=== PATIENT | female | born 1990 ===

== ENCOUNTER 2018-03-24 12:52 | Emergency (ER) | payer OTHER, SELFPAY ==
[2018-03-24] MEDS ORDERED: MORPHINE 4 MG/ML SYR ONE ×2 (14:21→16:29)
[2018-03-24] MEDS ORDERED: ONDANSETRON 4 MG/2 ML VIAL ONE ×2 (14:21→15:53)
[2018-03-24 14:39] LABS: Absolute Lymphocytes (CBC) 1.9 K/uL (0.7-4.9); Absolute Monocytes 0.8 K/uL (0.1-1.3); Absolute Neutrophil 14.8 K/uL (1.8-8.0); Basophils % 0.2 % (0-1.3); Eosinophils % 0.4 % (0-4.4); Hematocrit 40.2 % (36.0-45.0); Lymphocytes % 10.7 % (15.3-44.8); MCH 27.4 pg (27.0-35.0); MCV 84.2 fL (80-100); MPV 11.9 fL (7.6-11.3); Monocytes % 4.3 % (3.3-12.3); RBC Red Blood Cell Count 4.78 M/uL (3.86-4.86)
[2018-03-24 14:40] LABS: Urine Blood 2+ (NEG); Urine Glucose NEGATIVE (NEG); Urine Protein 1+ (NEG); Urine Specific Gravity 1.025 (1.005-1.030)
[2018-03-24 14:51] LABS: Urine Bacteria >50 /HPF (<20); Urine Culture Reflex Order NOT NEEDED; Urine Mucus HEAVY /HPF (NONE SEEN); Urine RBC >50 /HPF (NONE SEEN)
[2018-03-24 14:52] LABS: Bicarbonate 25 mEq/L (21-31); Glucose Level 102 mg/dL (65-120); Lipase 14 U/L (22-51); Potassium 3.4 mEq/L (3.6-5.0); Sodium Level 141 mEq/L (135-145)
--- NOTE | 2018-03-24 14:54 | RAD REPORT ---
EXAM DESCRIPTION: US - Abdomen Exam Limited - 03/24/2018 2:03 pm CLINICAL HISTORY: Right upper quadrant pain COMPARISON: None. FINDINGS: No gallstones, sludge or other abnormalities within the gallbladder lumen. There is no wal l thickening or pericholecystic fluid. No common duct stone or biliary tree dilatation identified. IMPRESSION: Normal gallbladder and biliary tree ultrasound.
[2018-03-24 14:58] LABS: ALT/SGPT 18 IU/L (10-60); AST/SGOT 26 IU/L (10-42); Albumin 4.4 g/dL (3.2-5.5); Alkaline Phosphatase 72 IU/L (42-121); BUN Blood Urea Nitrogen 5 mg/dL (6-20); Bilirubin Direct 0.1 mg/dL (0-0.2); Bilirubin Total 0.8 mg/dL (0.3-1.2); Protein, Total 7.6 g/dL (6.0-8.3)
--- NOTE | 2018-03-24 17:48 | RAD REPORT ---
EXAM DESCRIPTION: CT - Abdomen Pelvis W Contrast - 03/24/2018 5:36 pm CLINICAL HISTORY: Right upper quadrant pain, nausea and vomiting COMPARISON: None. TECHNIQUE: Biphasic, helical CT imaging of the abdomen and pelvis was performed following 100 ml non -ionic IV contrast. Oral contrast was given. All CT scans are performed using dose optimization technique as appropriate and may include automated exposure control or mA/KV adjustment according to patient size. FINDINGS: No suspicious findings in the lung bases. The liver, spleen, and pancreas show no suspicious findings. Gallbladder and biliary tree are also wi thout suspicious finding. Gallstones can be occult. No evidence for an active gallbladder process. Symmetric renal function is seen with no hydronephrosis or suspicious renal mass. No pyelonephritis o r acute renal parenchymal process. Urinary bladder is contracted limiting assessment. No bladder calc buck. Uterus and ovaries show no suspicious findings. No gastric dilatation or gastric wall thickening. Duodenum is unremarkable as well. There are no appe ndicitis findings. Large and small bowel without acute component. No free air or pneumatosis. Trace amount of free fluid in the cul-de-sac is well within physiologic limits. No hernia, mass or bulky l ymphadenopathy. No adrenal abnormality. No suspicious bony findings. IMPRESSION: Contrast enhanced CT abdomen and pelvis showing no significant or suspicious finding. Gallstones can be occult. No evidence for an active gallbladder or biliary tree process.
--- NOTE | 2018-03-24 17:58 | EDPHYS ---
Physician Documentation [facility] Name: Violeta Drake Age: 27 yrs Sex: Female : 1990 Arrival Date: 03/24/2018 Time: 12:55 Bed 13 Private MD: ED Physician Luis Angel Obrien HPI: 03/24 16:25 This 27 yrs old Unknown Female presents to ER via Ambulatory with complaints of rn Abdominal Pain, Vomiting. 16:25 The patient presents to the emergency department with nausea, vomiting, diarrhea, rn abdominal pain. 16:25 Onset: The symptoms/episode began/occurred today. Possible causes: unknown. The rn symptoms are aggravated by pressure, The symptoms are alleviated by nothing. Severity of symptoms: At their worst the symptoms were moderate in the emergency department the symptoms are unchanged. The patient has experienced similar episodes in the past. Reports has had several weeks/months of upper abd pain, assoc with nausea and diarrhea, worse after eating, got worse today, became constant. . 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 - Social history:: Smoking status: Patient/guardian denies using tobacco. - Family history:: not pertinent. - Hospitalizations: : No recent hospitalization is reported. ROS: 16:25 Constitutional: Negative for fever, chills, and weight loss, Eyes: Negative for injury, rn pain, redness, and discharge, Neck: Negative for injury, pain, and swelling, Cardiovascular: Negative for chest pain, palpitations, and edema, Respiratory: Negative for shortness of breath, cough, wheezing, and pleuritic chest pain, Abdomen/GI: + abd pain/vomiting MS/Extremity: Negative for injury and deformity, Skin: Negative for injury, rash, and discoloration, Neuro: Negative for headache, weakness, numbness, tingling, and seizure. Exam: 16:25 Constitutional: This is a well developed, well nourished patient who is awake, alert, rn and in no acute distress. Head/Face: Normocephalic, atraumatic. Eyes: Pupils equal round and reactive to light, extra-ocular motions intact. Lids and lashes normal. Conjunctiva and sclera are non-icteric and not injected. Cornea within normal limits. Periorbital areas with no swelling, redness, or edema. Cardiovascular: Regular rate and rhythm with a normal S1 and S2. No gallops, murmurs, or rubs. Normal PMI, no JVD. No pulse deficits. Respiratory: Lungs have equal breath sounds bilaterally, clear to auscultation and percussion. No rales, rhonchi or wheezes noted. No increased work of breathing, no retractions or nasal flaring. Abdomen/GI: soft, mild RUQ and periumbilical tenderness, no rebound Back: No spinal tenderness. No costovertebral tenderness. Full range of motion. MS/ Extremity: Pulses equal, no cyanosis. Neurovascular intact. Full, normal range of motion. Equal circumference. Neuro: Awake and alert, GCS 15, oriented to person, place, time, and situation. Cranial nerves II-XII grossly intact. Motor strength 5/5 in all extremities. Sensory grossly intact. Cerebellar exam normal. Normal gait. Vital Signs: 13:12 BP 124 / 79; Pulse 88; Resp 18; Temp 98.4(TE); Pulse Ox 100% on R/A; Weight 68.04 kg; hj Height 5 ft. 3 in. (160.02 cm); Pain 10/10; 14:00 BP 102 / 86; Pulse 74; Resp 18; Pulse Ox 99% on R/A; Pain 9/10; em 15:07 BP 115 / 90; Pulse 82; Resp 16; Pulse Ox 97% on R/A; Pain 3/10; em 16:15 BP 108 / 79; Pulse 71; Resp 18; Pulse Ox 99% on R/A; ae1 17:29 BP 106 / 76; Pulse 73; Resp 16; Pulse Ox 99% on R/A; em 18:13 BP 113 / 78; Pulse 69; Resp 16; Temp 98.3(O); Pulse Ox 100% on R/A; Pain 3/10; em 13:12 Body Mass Index 26.57 (68.04 kg, 160.02 cm) MDM: 13:39 Patient medically screened. rn 17:56 Differential diagnosis: Nonspecific abd pain, gastritis, cholecystitis, pancreatitis, rn appendicitis, diverticulitis, viral gastroenteritis, gastroenteritis. Data reviewed: vital signs, nurses notes, lab test result(s), radiologic studies, CT scan, ultrasound, and as a result, I will discharge patient. Counseling: I had a detailed discussion with the patient and/or guardian regarding: the historical points, exam findings, and any diagnostic results supporting the discharge/admit diagnosis, lab results, radiology results, the need for outpatient follow up, to return to the emergency department if symptoms worsen or persist or if there are any questions or concerns that arise at home. 17:56 Special discussion: Based on the patient's Hx, exam, and Dx evaluation, there is no rn indication for emergent surgery or inpatient Tx. It is understood by the patient/guardian that if the Sx's persist or worsen they need to return immediately for re-evaluation. I discussed with the patient/guardian in detail that at this point there is no indication for admission to the hospital. It is understood, however, that if the symptoms persist or worsen the patient needs to return immediately for re-evaluation. 03/24 13:45 Order name: Basic Metabolic Panel rn 03/24 13:45 Order name: CBC with Diff; Complete Time: 15:00 03/24 13:45 Order name: Creatinine for Radiology; Complete Time: 15:00 03/24 13:45 Order name: Hepatic Function rn 03/24 13:45 Order name: Lipase rn 03/24 13:45 Order name: Urine Microscopic Only; Complete Time: 15:00 03/24 13:45 Order name: US Abdomen Limited; Complete Time: 15:00 rn 03/24 13:46 Order name: Basic Metabolic Panel; Complete Time: 15:00 EDMD 03/24 13:46 Order name: Liver (Hepatic) Function; Complete Time: 15:00 EDMD 03/24 13:46 Order name: Lipase; Complete Time: 15:00 EDMD 03/24 14:38 Order name: Urine Dipstick--Ancillary (enter results); Complete Time: 15:00 bd 03/24 14:38 Order name: Urine --Ancillary (enter results); Complete Time: 15:00 bd 03/24 15:01 Order name: CT Abd/Pelvis - W/Contrast; Complete Time: 17:54 rn 03/24 13:45 Order name: Urine Test (obtain specimen); Complete Time: 14:35 rn 03/24 13:45 Order name: IV Saline Lock; Complete Time: 14:35 rn 03/24 13:45 Order name: Labs collected and sent; Complete Time: 14:35 rn 03/24 13:45 Order name: Urine Dipstick-Ancillary (obtain specimen); Complete Time: 14:35 rn Administered Medications: 14:30 Drug: morphine 4 mg Route: IVP; Site: right antecubital; iw 14:51 Follow up: Response: No adverse reaction em 14:30 Drug: Zofran 4 mg Route: IVP; Site: right antecubital; iw 14:51 Follow up: Response: No adverse reaction em 16:06 Drug: Zofran 4 mg Route: IVP; Site: right antecubital; em 16:50 Follow up: Response: No adverse reaction; Nausea is decreased em 16:40 Drug: morphine 4 mg Route: IVP; Site: right antecubital; em 18:12 Follow up: Response: No adverse reaction; Pain is decreased em 18:12 Drug: Cipro 500 mg Route: PO; em 18:13 Follow up: Response: Medication administered at discharge. em 18:12 Drug: Flagyl 500 mg Route: PO; em 18:13 Follow up: Response: Medication administered at discharge. em Disposition: 03/24/18 17:57 Discharged to Home. Impression: Enteritis, Vomiting, Diarrhea, unspecified. - Condition is Stable. - Discharge Instructions: Diarrhea, Nausea and Vomiting. - Prescriptions for Zofran ODT 4 mg Oral tablet,disintegrating - place 1 tablet by TRANSLINGUAL route every 8-10 hours As needed; 20 tablet. Cipro 500 mg Oral Tablet - take 1 tablet by ORAL route every 12 hours for 10 days; 20 tablet. Flagyl 500 mg Oral Tablet - take 1 tablet by ORAL route every 8 hours for 10 days; 30 tablet. - Medication Reconciliation Form, Thank You Letter, Antibiotic Education, Prescription Opioid Use form. - Follow up: Private Physician; When: As needed; Reason: Recheck today's complaints, Re-evaluation by your physician. - Problem is new. - Symptoms have improved. Signatures: Dispatcher [employer] EDGuanakito Rojo, TRAINING PROGRAM MANAGER TRAINING PROGRAM MANAGER em Val Thomas RN RN iw Nieto, Roman, MD MD rn Joaquin, Henry, RN RN hj Corrections: (The following items were deleted from the chart) 18:14 17:57 03/24/2018 17:57 Discharged to Home. Impression: Enteritis; Vomiting; Diarrhea, em unspecified. Condition is Stable. Forms are Medication Reconciliation Form, Thank You Letter, Antibiotic Education, Prescription Opioid Use. Follow up: Private Physician; When: As needed; Reason: Recheck today's complaints, Re-evaluation by your physician. Problem is new. Symptoms have improved. rn
--- NOTE | 2018-03-24 17:58 | ER ---
Nurse's Notes [facility] Name: Violeta Drake Age: 27 yrs Sex: Female : 1990 Arrival Date: 03/24/2018 Time: 12:55 Bed 13 Private MD: Diagnosis: Enteritis;Vomiting;Diarrhea, unspecified Presentation: 03/24 13:10 Presenting complaint: Patient states: yesterday i started having abd pain; R upper hj outer; reports nausea and vomiting; it hurts especially after eating; reports chills;. Transition of care: patient was not received from another setting of care. Onset of symptoms was March 24, 2018. Initial Sepsis Screen: Does the patient meet any 2 criteria? No. Patient's initial sepsis screen is negative. Does the patient have a suspected source of infection? No. Patient's initial sepsis screen is negative. Care prior to arrival: None. 13:10 Method Of Arrival: Ambulatory hj 13:10 Acuity: YESENAI 3 hj Triage Assessment: 13:12 General: Appears in no apparent distress. uncomfortable, Behavior is calm, cooperative, hj appropriate for age. Pain: Complains of pain in abdomen. GI: Reports upper abdominal pain, nausea, vomiting. 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 - Social history:: Smoking status: Patient/guardian denies using tobacco. - Family history:: not pertinent. - Hospitalizations: : No recent hospitalization is reported. Screenin:32 Abuse screen: Denies threats or abuse. Nutritional screening: No deficits noted. em Tuberculosis screening: No symptoms or risk factors identified. Fall Risk None identified. Assessment: 13:12 GI: Bowel sounds present X 4 quads. Abd is soft Abdomen is tender to palpation. hj 14:00 General: Appears in no apparent distress. uncomfortable, Behavior is cooperative, em crying. Pain: Complains of pain in right upper quadrant. Neuro: Level of Consciousness is awake, alert, obeys commands, Oriented to person, place, time, situation. Cardiovascular: Capillary refill < 3 seconds Patient's skin is warm and dry. Respiratory: Airway is patent Respiratory effort is even, unlabored, Respiratory pattern is regular, symmetrical. GI: Abdomen is flat, Bowel sounds present X 4 quads. Abd is soft X 4 quads Abdomen is tender to palpation in right upper quadrant Reports diarrhea, nausea, vomiting, since 2 months. : Denies burning with urination. Derm: Skin is intact, Skin is pink, warm \T\ dry. Musculoskeletal: Range of motion: intact in all extremities. 14:41 Reassessment: Patient appears in no apparent distress at this time. I agree with above iw assessment by Guanakito Sahu LVN. 15:07 Reassessment: Patient appears in no apparent distress at this time. Patient and/or em family updated on plan of care and expected duration. Pain level reassessed. Patient is alert, oriented x 3, equal unlabored respirations, skin warm/dry/pink. Patient states feeling better. 15:43 Reassessment: Patient appears in no apparent distress at this time. Patient and/or em family updated on plan of care and expected duration. Pain level reassessed. Patient is alert, oriented x 3, equal unlabored respirations, skin warm/dry/pink. c/o nausea while drinking PO contrast, Dr. Obrien notified, new orders received. 16:14 Reassessment: Lena in [place] notified via telephone that patient completed PO contrast. ae1 17:29 Reassessment: Patient appears in no apparent distress at this time. Patient and/or em family updated on plan of care and expected duration. Pain level reassessed. Patient is alert, oriented x 3, equal unlabored respirations, skin warm/dry/pink. Patient states feeling better. Vital Signs: 13:12 BP 124 / 79; Pulse 88; Resp 18; Temp 98.4(TE); Pulse Ox 100% on R/A; Weight 68.04 kg; hj Height 5 ft. 3 in. (160.02 cm); Pain 10/10; 14:00 BP 102 / 86; Pulse 74; Resp 18; Pulse Ox 99% on R/A; Pain 9/10; em 15:07 BP 115 / 90; Pulse 82; Resp 16; Pulse Ox 97% on R/A; Pain 3/10; em 16:15 BP 108 / 79; Pulse 71; Resp 18; Pulse Ox 99% on R/A; ae1 17:29 BP 106 / 76; Pulse 73; Resp 16; Pulse Ox 99% on R/A; em 18:13 BP 113 / 78; Pulse 69; Resp 16; Temp 98.3(O); Pulse Ox 100% on R/A; Pain 3/10; em 13:12 Body Mass Index 26.57 (68.04 kg, 160.02 cm) ED Course: 12:55 Patient arrived in ED. rg4 13:11 Triage completed. hj 13:12 Arm band placed on left wrist. hj 13:39 Luis Angel Obrien MD is Attending Physician. rn 13:52 Patient taken to ultrasound. via wheelchair. aa4 14:03 US Abdomen Limited In Process Unspecified. EDMS 14:06 Ultrasound completed. Patient tolerated well. Patient moved back from ultrasound. aa4 14:18 Guanakito Sahu LVN is Primary Nurse. em 14:25 No provider procedures requiring assistance completed. Initial lab(s) drawn, by me, em sent to lab. Inserted saline lock: 20 gauge in right antecubital area, using aseptic technique. Blood collected. 14:32 Patient has correct armband on for positive identification. Bed in low position. Call em light in reach. Side rails up X 1. Adult w/ patient. 14:36 Urine collected: clean catch specimen, marvin colored. dh3 17:36 CT Abd/Pelvis - W/Contrast In Process Unspecified. EDMS 18:13 IV discontinued, intact, bleeding controlled, No redness/swelling at site. Pressure em dressing applied. Administered Medications: 14:30 Drug: morphine 4 mg Route: IVP; Site: right antecubital; iw 14:51 Follow up: Response: No adverse reaction em 14:30 Drug: Zofran 4 mg Route: IVP; Site: right antecubital; iw 14:51 Follow up: Response: No adverse reaction em 16:06 Drug: Zofran 4 mg Route: IVP; Site: right antecubital; em 16:50 Follow up: Response: No adverse reaction; Nausea is decreased em 16:40 Drug: morphine 4 mg Route: IVP; Site: right antecubital; em 18:12 Follow up: Response: No adverse reaction; Pain is decreased em 18:12 Drug: Cipro 500 mg Route: PO; em 18:13 Follow up: Response: Medication administered at discharge. em 18:12 Drug: Flagyl 500 mg Route: PO; em 18:13 Follow up: Response: Medication administered at discharge. em Outcome: 17:57 Discharge ordered by . rn 18:14 Discharged to home ambulatory. em 18:14 Condition: good 18:14 Discharge instructions given to patient, Instructed on discharge instructions, follow up and referral plans. medication usage, Demonstrated understanding of instructions, follow-up care, medications, Prescriptions given X 3. 18:14 Patient left the ED. em Signatures: Dispatcher [employer] EDMS Guanakito Sahu, EMPLOYMENT MANAGER EMPLOYMENT MANAGER em Val Thomas, RN RN Alisha Elliott aa4 Luis Angel Obrien MD MD rn Joaquin, Henry RN Dwayne Abrams RN RN ae1 Shaniqua Christie rg4 Sandie Zuñiga 3 Corrections: (The following items were deleted from the chart) 13:13 13:12 Pulse 88bpm; Resp 18bpm; Pulse Ox 100% RA; Temp 98.4F Temporal; 68.04 kg; Height hj 5 ft. 3 in.; BMI: 26.5; Pain 10/10; hj
[2018-03-24] MEDS ORDERED: CIPROFLOXACIN HCL 500 MG TAB ONE (18:07)
[2018-03-24] MEDS ORDERED: metroNIDAZOLE 500 MG TABLET ONE (18:07)
== END 2018-03-24 18:14 | disposition home or self-care (01) ==
LOC: ER 12:52
DX: K52.9 Noninfective gastroenteritis and colitis, unspecified (principal)
CPT/HCPCS: 36415; 74177; 76705; 80048; 80076; 81003; 81015; 81025; 83690; 85025; 96374; 96375; 99284; J2405; Q9967